=== PATIENT | female | born 1945 | race Caucasian/White ===

== ENCOUNTER 2024-10-24 10:56 | Outpatient (RCR) | payer MEDICARE, OTHER, SELFPAY | END 2024-10-24 23:59 | disposition home or self-care (01) | LOC: RPT 10:56 | PROVIDERS: ATTENDING PHYSICIAN Physician Assistant; FAMILY PHYSICIAN Family Medicine | DX: N81.10 Cystocele, unspecified (principal); M62.89 Other specified disorders of muscle; N39.3 Stress incontinence (female) (male); Z73.6 Limitation of activities due to disability | CPT/HCPCS: 97014; 97110; 97112; 97162; 97530 ==

== ENCOUNTER 2024-11-20 12:48 | Outpatient (RCR) | payer MEDICARE, OTHER, SELFPAY | END 2024-11-20 23:59 | disposition home or self-care (01) | LOC: RPT 12:48 | PROVIDERS: ATTENDING PHYSICIAN Physician Assistant; FAMILY PHYSICIAN Family Medicine | DX: N81.10 Cystocele, unspecified (principal); M62.89 Other specified disorders of muscle; N39.3 Stress incontinence (female) (male); Z73.6 Limitation of activities due to disability | CPT/HCPCS: 97112; 97140; 97530 ==

== ENCOUNTER 2024-12-04 13:25 | Outpatient (RCR) | payer MEDICARE, OTHER, SELFPAY | END 2024-12-04 23:59 | disposition home or self-care (01) | LOC: RPT 13:25 | PROVIDERS: ATTENDING PHYSICIAN Physician Assistant; FAMILY PHYSICIAN Family Medicine | DX: N81.10 Cystocele, unspecified (principal); M62.89 Other specified disorders of muscle; N39.3 Stress incontinence (female) (male); Z73.6 Limitation of activities due to disability | CPT/HCPCS: 97112; 97530 ==

== ENCOUNTER → 2025-06-12 08:44 | Outpatient (REF) | payer MEDICARE, OTHER, SELFPAY ==
[2025-06-12 11:21] LABS: Hematocrit 37.4 % (37.0-47.0); Hemoglobin 12.2 g/dL (12.0-16.0); Mean Corp Hgb Conc. 32.6 g/dL (33.0-37.0); Mean Corpuscular Volume 86.0 fL (81.0-99.0); Platelet Count 203 10^3/uL (130-400); Red Cell Dist. Width 13.1 % (11.5-14.5)
[2025-06-12 12:07] LABS: ALT (SGPT) 25 U/L (0-35); AST (SGOT) 25 U/L (14-36); Albumin 4.4 g/dl (3.5-5.0); Alkaline Phosphatase 69 U/L (38-126); Blood Urea Nitrogen 15 mg/dl (7-17); Calcium 9.2 mg/dl (8.4-10.2); Carbon Dioxide 30 mmol/L (22-30); Chloride 101 mmol/L (98-107); Glucose 101 mg/dl (70-99); Potassium 4.0 mmol/L (3.5-5.1); Sodium 136 mmol/L (135-145); Total Protein 7.0 g/dl (6.3-8.2); eGFR > 60.00
== END ==
LOC: SDSPAT 08:44
PROVIDERS: ATTENDING PHYSICIAN Obstetrics & Gynecology; FAMILY PHYSICIAN Family Medicine
DX: Z01.818 Encounter for other preprocedural examination (principal)
CPT/HCPCS: 36415; 80053; 85027; 86850; 86900; 86901; 93005

== ENCOUNTER 2025-06-15 06:20 | Day surgery (SDC) | payer MEDICARE, OTHER, SELFPAY ==
[2025-06-12 13:53] VITALS: BMI 21.6
[2025-06-15] VITALS (13 sets, daily range): BP systolic 110–178; BP diastolic 61–90; BMI 21.6
[2025-06-15] MEDS: NORMOSOL-R/PLASMALYTE-A 1000 IV (09:54)
== END 2025-06-15 15:40 | disposition home or self-care (01) ==
LOC: SDS 06:20
PROVIDERS: ATTENDING PHYSICIAN Obstetrics & Gynecology; FAMILY PHYSICIAN Family Medicine
DX: N81.3 Complete uterovaginal prolapse (principal); N39.3 Stress incontinence (female) (male); N36.41 Hypermobility of urethra; N95.8 Other specified menopausal and perimenopausal disorders
CPT/HCPCS: 57288; 57120; 57250; 86900; 86901; C1771